=== PATIENT | male | born 1955 | race Caucasian/White ===

== ENCOUNTER 2017-01-24 10:43 | Emergency (ER) | payer OTHER ==
--- NOTE | 2017-01-24 10:44 | ED.REPORT ---
HPI-Trauma Minor / Fall Date of Service Jan 24, 2017 ED Provider: Miki Kevin Patient is a 61 year old male who presents to the ED via EMS s/p slipping and falling 10 feet off his roof and landing on his L side. Upon arrival he has an open L humerus fracture. He complains of L hip pain and L rib pain. He reports he did not hit his head. He denies LOC, headache, neck pain, back pain, chest pain, SOB, shoulder pain, numbness, tingling, or any other symptoms. He does not take any prescription medications. Nursing Notes Stated Complaint: FALL Nursing Notes Reviewed: Yes Allergies: Coded Allergies: codeine (Verified Allergy, Unknown, 01/24/17) Miscellaneous Medications Calcium Carbonate (Calcium) 600 Mg Tablet Unknown Dose PO Multivits-Minerals/FA/Lycopene (One Daily For Men Tablet) 1 Each Tablet 1 EACH PO [place]-3 Fatty Acids (Fish Oil) 500 Mg Capsule. Unknown Dose PO General Time Seen by MD: 10:44 Chief Complaint Fall Hx Obtained From: Patient, EMS Arrived By: Ambulance Onset Occurred: Just prior to arrival Caused by: Fall from height... (6-10 feet) Location: Arm left Hip left Quality: Painful Severity: Current: Moderate Severity: Maximum: Moderate Context: Immunizations Unknown Past Medical History Past Medical History None reported Past Surgical History Spinal fusion L total knee replacement Smoking History Never Smoker Social History Alcohol Use: Denies alcohol use Review of Systems Review of Systems Note: +fall from 10 feet, L open humerous fx, L rib pain -shoulder pain, tingling Respiratory: Denies: Shortness of breath Musculoskeletal: Reports: Extremity pain, Joint pain (L hip ), Denies: Back pain, Neck pain Neurologic: Denies: Change LOC, Headache, Numbness Complete sys rev & neg: except as marked. Cardiovascular: Denies: Chest pain Physical Exam Initial Vital Signs Vital Signs (First) Date Time Temp Pulse Resp B/P Pulse Ox O2 Delivery O2 Flow Rate FiO2 01/24/17 13:24 86 17 155/87 96 Initial VS: Reviewed General/Constitutional: Awake, Alert Distress / Hydration: Positive: Distress moderate Neck: Atraumatic, Supple, Full range of motion Head / Eyes: Atraumatic, Normocephalic, PERRL, EOMI Respiratory / Chest: Breath sounds NL, Breath sounds = bilat, No respiratory distress L chest wall tenderness Cardiovascular: Heart rate NL, Regular rhythm, Heart sounds NL Abdomen: Atraumatic, Soft, Non-tender, No guarding, No rebound, No distention Back: Inspection NL Upper Extremity / MS: Neurologic intact, Vascular intact Distal, posterior open wound to L humerus with obvious distal humerus deformity. Lower Extremity / Pelvis / MS: Neurologic intact, Vascular intact, Pelvis stable, Pelvis non-tender L leg shortened and pain with axial rotation Neurologic: Oriented X3, Speech NL Neurovascularly intact x all 4 extremities Interpretation & Diagnostics Lab Results Interpretation Result Diagram: 01/24/17 1053 01/24/17 1030 Test 01/24/17 10:30 01/24/17 10:53 01/24/17 13:00 White Blood Count 10.3th/mm3 (3.8-10.1) Red Blood Count 5.51mil/mm3 (4.40-5.80) Mean Corpuscular Volume 87.5fL (81-100) Mean Corpuscular Hemoglobin 29.9pg (27.0-35.0) Mean Corpuscular Hemoglobin Concent 34.2% (32.0-37.0) Red Cell Distribution Width 12.7% (12.3-15.4) Platelet Count 275bil/L (150-400) Neutrophils (%) (Auto) 44.0% (40-74) Lymphocytes (%) (Auto) 45.4% (14-46) Monocytes (%) (Auto) 7.4% (4-12) Eosinophils (%) (Auto) 2.0% (0-5) Basophils (%) (Auto) 0.7% (0-3) Prothrombin Time 11.2sec (8.1-12.5) Prothromb Time International Ratio 1.05ratio Activated Partial Thromboplast Time 24.6sec (22.8-33.0) Sodium Level 140mEq/L (134-144) Potassium Level 3.5mEq/L (3.5-5.2) Chloride Level 98mEq/L (97-108) Carbon Dioxide Level 26mmol/L (18-29) Blood Urea Nitrogen 15mg/dL (8-27) Creatinine 0.97mg/dL (0.76-1.27) Estimat Glomerular Filtration Rate 83mL/min (>59) Glucose Level 96mg/dL (60-99) Calcium Level 10.2mg/dL (8.5-10.1) Total Bilirubin 0.6mg/dL (0.0-1.2) Aspartate Amino Transf (AST/SGOT) 27U/L (0-50) Alanine Aminotransferase (ALT/SGPT) 22U/L (0-44) Alkaline Phosphatase 48U/L (25-160) Total Protein 7.9g/dL (6.4-8.4) Albumin 4.5g/dL (3.4-5.0) Alcohols < 10mg/dL (0-10) Hemoglobin 15.8g/dL (13.8-17.2) Hematocrit 46.0% (41.0-50.0) Hold [place] Top Tube Received (Received) Hold Urine Received (Received) ECG Interpretation ECG Interpretation: Sinus rate 73 incomplete RBBB Time: 11:07 Interpreted by: ED physician X-Ray Chest Interpretation Chest Xray Interpretation: IMPRESSION: 1. Low lung volumes without definite acute traumatic abnormality. 2. Prominence of the mediastinal contours likely due to low lung volumes and portable supine technique. Recommend attention on followup. Dictated by: Samir Dent M.D. on 01/24/2017 at 11:09 Approved by: Samir Dent M.D. on 01/24/2017 at 11:10 View: Portable, 1 view Interpretation / Wet Read by: Interpret - Radiologist X-Ray Interpretation Xray Interpretation: IMPRESSION: 1. Comminuted intra-articular fracture of the distal left humerus. Dictated by: Samir Dent M.D. on 01/24/2017 at 11:12 Approved by: Samir Dent M.D. on 01/24/2017 at 11:13 X-Ray Ordered: Humerus left Interpretation / Wet Read by: Interpret - Radiologist Xray Interpretation: IMPRESSION: 1. Comminuted proximal left femoral fracture. Dictated by: Samir Dent M.D. on 01/24/2017 at 11:10 Approved by: Samir Dent M.D. on 01/24/2017 at 11:11 X-Ray Ordered: Pelvis Interpretation / Wet Read by: Interpret - Radiologist CT Abd / Pelvis Interpretation IMPRESSION: 1. Comminuted intertrochanteric fracture of the proximal left femur. 2. Mildly displaced fractures of the left 5th through 7th ribs. 3. No definite acute traumatic abnormality within the chest, abdomen, or pelvis. Dictated by: Samir Dent M.D. on 01/24/2017 at 12:10 Approved by: Samir Dent M.D. on 01/24/2017 at 12:17 Study type: Abdominal CT IV contrast Interpretation / Wet Read by: Interpret - Radiologist Re-Eval/Medical Decision Med Decision/Clinical Course Patient care initiated prior to arrival when EMS notified us of a high risk fall from the field. Physician, nursing, and other ancillary staff for immediately available at the bedside. ATLS protocols initiated, irregular breathing and circulation are initially stable. Identifiable injuries to the left hip and left distal humerus as well as left rib cage. Patient fully admits that he did not hit his head and is not having neck pain. CT of the chest abdomen pelvis is performed as well as plain films of the extremities which reveal multiple rib fractures, comminuted open distal humerus fracture, and a left intertrochanteric femur fracture. Ancef and tetanus are given. Orthopedics is consulted who came down to the ER and evaluated the patient. It is felt that the patient's injuries require a higher level of care according to orthopedic surgeon. The patient has been graciously accepted at [facility]. Re-Evaluation/Progress : Time of Eval: 11:45 Re-Evaluation/Progress Note: Discussed plan for transfer. Patient understands and agrees with plan. All questions addressed at this time. Consultation #1: Referral / Consult Name: Dario Jennings MD Consulted With: Orthopedic Call Returned at: 11:12 Note: Discussed pt's case. Would like to ship pt. Consultation #2: Referral / Consult Name: Dario Jennings MD Consulted With: Orthopedic Call Returned at: 11:32 Note: Saw pt. Will call [facility]. Consultation #3: Call Returned at: 12:30 Siebel Administrator: Will see patient, Agrees with eval, Agrees with plan, Accepts admit Note: Lena Davison at [facility] accepts admit. Requests [facility] for transport. Counseled Regarding: Diagnosis, Lab results, Need for transfer Discharge & Departure Impression: Primary Impression: Comminuted left humeral fracture Encounter type: initial encounter Fracture type: open Qualified Code: S42.302B - Unspecified fracture of shaft of humerus, left arm, initial encounter for open fracture Additional Impressions: Femur fracture, left Encounter type: initial encounter Femur location: unspecified portion of femur Fracture type: closed Fracture morphology: unspecified fracture morphology Qualified Code: S72.92XA - Unspecified fracture of left femur, initial encounter for closed fracture Rib fractures Encounter type: initial encounter Rib fracture type: multiple ribs Fracture type: closed Laterality: unspecified laterality Qualified Code: S22.49XA - Multiple fractures of ribs, unspecified side, initial encounter for closed fracture Disposition: ADMITTED TO HOSPITAL Receiving Hospital: [facility], Dr. Lena Davison Transfer Accepted: Yes Transfer Accepted at: 12:30 Transfer Reason: Higher level of care Patient Status: Stable for transfer Patient Informed: Yes Discharge Condition All VS Reviewed: Yes Condition: Stable Crit Care Except Billable Proc Time Spent: 30-74 minutes Services Performed: Patient management by me, Time spent at bedside, Reviewing test results, Reviewing imaging, Discussing patient care, Documentation in record, Time with fam/surrogate Critical Care Notes: 35 minutes, See MDM Scribe Attestation Portions of this note were transcribed by Qian Rizzo. I, Dr. Livingston personally performed the history, physical exam and medical decision-making; I reviewed and confirmed the accuracy of the information in the transcribed note. Signed: Chavez Zhu, 01/24/17 Kevin Livingston DO Jan 24, 2017 10:44 QIAN RIZZO Jan 24, 2017 10:52
[2017-01-24] MEDS ORDERED: 0.9% Sodium Chloride 1,000 ML IV ONE (10:47)
[2017-01-24] MEDS ORDERED: Ondansetron 2 mg/mL 2 mL Inj IVPUSH PRN (10:50)
[2017-01-24] MEDS ORDERED: CeFAZolin Inj 3 GM in Dextrose 5% 50 ML IV ONE (10:55)
[2017-01-24] MEDS ORDERED: TdaP Vaccine 0.5 mL Inj IM ONE (10:55)
[2017-01-24] MEDS: HYDROmorphone 0.5 mg/0.5 mL iSecure Syringe IVPUSH PRN ×2 (11:07→11:35)
--- NOTE | 2017-01-24 11:11 | DRSVH ---
PROCEDURE: X-RAY CHEST ONE VIEW, PORTABLE ([id number]) INDICATIONS: fall from roof TECHNIQUE: One view of the chest was acquired. COMPARISON: None. FINDINGS: Surgical changes and devices: None. Lungs and pleura: No pleural effusions or pneumothorax. There are low lung volumes. No focal conso lidation or definite evidence of contusions. Mediastinum: Mediastinal contours appear prominent which may be due to low volumes and portable supi ne technique. Heart size is normal. Bones and chest wall: No displaced fractures. No suspicious bony lesions. Overlying soft tissues a ppear unremarkable. IMPRESSION: 1. Low lung volumes without definite acute traumatic abnormality. 2. Prominence of the mediastinal contours likely due to low lung volumes and portable supine techniq ue. Recommend attention on followup. Dictated by: Samir Dent M.D. on 01/24/2017 at 11:09 Approved by: Samir Dent M.D. on 01/24/2017 at 11:10
--- NOTE | 2017-01-24 11:13 | DRSVH ---
PROCEDURE: X-RAY PELVIS, ONE OR TWO VIEWS ([id number]) INDICATIONS: fall from roof TECHNIQUE: Single view of the pelvis acquired. COMPARISON: None. FINDINGS: Bones: There is a comminuted fracture of the proximal left femur involving the greater and lesser tro chanters which is incompletely evaluated on this study. Postsurgical changes are demonstrated within the lower lumbar spine. The pelvic ring appears grossly intact. Soft tissues: Visualized bowel gas pattern is normal. No suspicious soft tissue calcifications. IMPRESSION: 1. Comminuted proximal left femoral fracture. Dictated by: Samir Dent M.D. on 01/24/2017 at 11:10 Approved by: Samir Dent M.D. on 01/24/2017 at 11:11
--- NOTE | 2017-01-24 11:15 | DRSVH ---
PROCEDURE: X-RAY LEFT HUMERUS, MINIMUM TWO VIEWS ([id number]) INDICATIONS: fall from roof TECHNIQUE: Single view of the humerus acquired. COMPARISON: None. FINDINGS: Bones: There is a comminuted fracture of the distal left humerus extending through the elbow joint wi th evaluation limited on this single view. Soft tissues: There is associated soft tissue swelling around the distal left humerus. IMPRESSION: 1. Comminuted intra-articular fracture of the distal left humerus. Dictated by: Smair Dent M.D. on 01/24/2017 at 11:12 Approved by: Samir Dent M.D. on 01/24/2017 at 11:13
[2017-01-24 11:23] LABS: BASOPHILS % (AUTO) 0.7 % (0-3); MONOCYTES % (AUTO) 7.4 % (4-12); Mean Corpuscular Hemoglobin 29.9 pg (27.0-35.0); Mean Corpuscular Volume 87.5 fL (81-100); Platelet Count 275 bil/L (150-400)
[2017-01-24 11:24] LABS: INR 1.05 ratio
[2017-01-24] MEDS ORDERED: CALC600T12 PO (11:58)
[2017-01-24] MEDS ORDERED: MULT-898 PO (11:58)
[2017-01-24] MEDS ORDERED: OMEG500C PO (11:58)
--- NOTE | 2017-01-24 12:19 | DRSVH ---
PROCEDURE: CT CHEST, ABDOMEN AND PELVIS WITH CONTRAST ([id number]) INDICATIONS: fall from roof, left chest wall pain TECHNIQUE: After the administration of intravenous contrast, 5 mm thick sections acquired from the lung apices t o the symphysis. 5 mm thick coronal and sagittal reformats were acquired. Additional 7 mm thick cor onal maximum intensity projection (MIP) reformats acquired through the lungs. Optional 10-minute del ayed imaging may be performed from the kidneys to the bladder. For radiation dose reduction, the fol lowing was used: automated exposure control, adjustment of mA and/or kV according to patient size. COMPARISON: [facility], CR, XR PELVIS 1 OR 2VW, 01/24/2017, 10:39. FINDINGS: Image quality: There is metallic streak artifact associated with patient's surgical hardware in the l umbar spine.. CHEST: Lungs: No pulmonary contusions or lacerations. No pneumothorax or hemothorax. There is mild depend ent atelectasis. Central and peripheral airways appear patent and normal in caliber. Mediastinum: No mediastinal hematomas. Heart size is normal. No pericardial effusion. There is co ronary artery vascular calcification. Thoracic aorta and pulmonary arteries demonstrate normal size and enhancement. No mediastinal or hilar adenopathy. Esophagus is normal in caliber. No hiatal her abhay. Chest wall: No rib fractures. No subcutaneous emphysema. No axillary or supraclavicular adenopathy . ABDOMEN: Solid organs: Liver and spleen are normal in size and enhancement, without lacerations. Gallbladder appears within normal limits without calcified gallstones. Biliary system is non-dilated. Pancreas enhances normally, without transection. No adrenal hematomas. Both kidneys enhance normally, witho ut hydronephrosis or lacerations. There is a small left renal cyst as well as an additional small lo w-density foci in the kidneys which are too small to characterize but likely represent cysts. There is mild nonspecific perinephric stranding bilaterally. Peritoneum and bowel: No free fluid or air. Unenhanced bowel loops demonstrate normal wall thicknes s and caliber. There is colonic diverticulosis without acute diverticulitis. Nodes and vessels: No retroperitoneal or mesenteric adenopathy. Aorta and inferior vena cava are no rmal in size and enhancement. Miscellaneous: No ventral hernias. PELVIS: Genitourinary: Bladder wall thickness is normal. Miscellaneous: No inguinal hernias or adenopathy. Bones: There is a comminuted intertrochanteric fracture of the proximal left femur with associated m ild proximal displacement of the distal component and varus angulation. There are preserved changes status post posterior fixation in the lumbar spine from L2-L5. The surgical hardware appears intact. No vertebral body compression fractures. There are mildly displaced fractures of the left 5th thro ugh 7th ribs. IMPRESSION: 1. Comminuted intertrochanteric fracture of the proximal left femur. 2. Mildly displaced fractures of the left 5th through 7th ribs. 3. No definite acute traumatic abnormality within the chest, abdomen, or pelvis. Dictated by: Samir Dent M.D. on 01/24/2017 at 12:10 Approved by: Samir Dent M.D. on 01/24/2017 at 12:17
[2017-01-24 13:24] VITALS: BP 155/87; PULSE 86; RESP 17; O2SAT 96
--- NOTE | 2017-01-24 15:53 | ER ---
[address] [address] EMERGENCY DEPARTMENT REPORT PATIENT: LUKE EMMANUEL : 1955 MR#: [id number] ADMIT: 01/24/2017 JOB ID: [id number] DATE OF SERVICE: 01/24/2017 ORTHOPEDIC EMERGENCY DEPARTMENT CONSULTATION: CPT code 28779. 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 He also sustained rib fractures on the left of 5, 6, and 7. There was no obvious loss of consciousness. The patient states he was trying to complete some work on his roof. He fell about 14 feet off the roof onto his left side. The patient denied any numbness or tingling in the left upper extremity or left lower extremity. PAST MEDICAL HISTORY: Allergies to CODEINE. MEDICATIONS: Takes multivitamins and fish oil, as well as calcium. PAST SURGICAL HISTORY: Prior surgeries include spinal fusion as well as a left total knee replacement. SOCIAL HISTORY: Lives with . Does not smoke or drink. REVIEW OF SYSTEMS: HEENT: Denies any headache or dizziness. No facial trauma. Respiratory: Has some left chest wall pain but no acute shortness of breath. Cardiac: No chest pain. GI: No nausea or vomiting. : Denies any symptoms. Musculoskeletal: Left elbow pain. Left leg pain. Hip pain. Hematologic: No easy bleeding or bruising. Psychiatric: No anxiety or depression. PHYSICAL EXAMINATION: The patient is alert and oriented. Height and weight are not posted. Pulse 86, respirations 17, blood pressure 155/87, pulse ox of 96. The patient moves both feet and is able to move both hands. He has a grossly unstable left distal humeral intra-articular very comminuted fracture. Grade 1 open wound with persistent venous bleeding. Radial and ulnar pulses are full. Radial median and ulnar motor and sensory function intact. Patient has purposeful movement with his left hand. He is left-hand dominant. Left lower extremity shortened and externally rotated. Peripheral pulses are full. Motor and sensory testing intact, left lower extremity. The patient denies any neck pain. Does have chest wall pain. Does have a protuberant abdomen but is not complaining of any acute abdominal pain. LABORATORY TESTING: Shows white count 10,300, hemoglobin 16.5, hematocrit 48.2. Repeat hemoglobin 15.8, hematocrit of 46. Toxicology shows alcohol is less than 10. Platelet count 275,000. PT 11.2, INR 1.05. Sodium 140, potassium 3.5, chloride 98, CO2 26, BUN 15, creatinine 0.97, glucose random 96. Calcium 10.2. Liver function tests within normal limits. X-rays show a very comminuted left distal humeral intra-articular fracture. He has a comminuted left intertrochanteric, slightly subtrochanteric femoral fracture. Chest x-ray showed low lung volume. CT the chest, abdomen, and pelvis showed mildly displaced fractures on the left at 5, 6 and 7. Also showed the comminuted intertrochanteric left proximal femur fracture with extension to the high subtrochanteric region. IMPRESSION: A 61-year-old male, fell from height. Comminuted grade 1 open left distal humeral intra-articular fracture and comminuted left intertrochanteric, high subtrochanteric femoral fracture and multiple rib fractures. Fall from a height and multiple long-bone fractures and rib fractures. PLAN: Due to the extent of the comminution of the elbow fracture and the associated hip fracture and multiple long-bone fractures, as well as rib fractures, I felt it was best to transfer the patient to [facility]. However, he was contacted and they have accepted the patient without question. He is to be transported to their emergency department. The patient has agreed to the transfer. CC: [facility] and [facility]
[2017-01-24 17:25] LABS: APPEARANCE,URINE HAZY (CLEAR,HAZY); COLOR,URINE YELLOW (YELLOW); OCCULT BLOOD,URINE TRACE (NEGATIVE); PH,URINE 7.5 (5.0-8.0); UROBILINOGEN,URINE NORMAL (NORMAL)
== END 2017-01-24 13:25 | disposition short-term general hospital (02) ==
LOC: EDBD 10:43 → SED 10:43
DX: S42.492B Other displaced fracture of lower end of left humerus, initial encounter for open fracture (principal); S72.112A Displaced fracture of greater trochanter of left femur, initial encounter for closed fracture; S22.42XA Multiple fractures of ribs, left side, initial encounter for closed fracture; W13.2XXA Fall from, out of or through roof, initial encounter; Y93.89 Activity, other specified; Y92.018 Other place in single-family (private) house as the place of occurrence of the external cause; Y99.8 Other external cause status; Z23 Encounter for immunization; Z88.5 Allergy status to narcotic agent
CPT/HCPCS: 36415; 71010; 71260; 72170; 73060; 74177; 80053; 81001; 85014; 85018; 85025; 85610; 85730; 86850; 90471; 90715; 93005; 96361; 96374; 96375; 99291; G0480; J0690; J1170; J7030; Q9967